=== PATIENT | female | born 1960 | race Caucasian/White ===

== ENCOUNTER 2024-05-09 06:35 | Day surgery (SDC) | payer OTHER, SELFPAY ==
[2024-05-09 11:51] VITALS: BMI 44.6
[2024-05-09 11:52] VITALS: BMI 44.6
[2024-05-09 12:09] VITALS: BP 168/88
[2024-05-09 12:48] VITALS: BP 105/68
[2024-05-09 13:00] VITALS: BP 121/75
[2024-05-09 13:15] VITALS: BP 132/79
[2024-05-09 13:30] VITALS: BP 138/85
== END 2024-05-09 14:01 | disposition home or self-care (01) ==
LOC: SDS 06:35
PROVIDERS: ATTENDING PHYSICIAN Internal Medicine Gastroenterology
DX: Z12.11 Encounter for screening for malignant neoplasm of colon (principal); D12.2 Benign neoplasm of ascending colon; K57.30 Diverticulosis of large intestine without perforation or abscess without bleeding; K64.8 Other hemorrhoids; K44.9 Diaphragmatic hernia without obstruction or gangrene; K31.89 Other diseases of stomach and duodenum; R12 Heartburn; K29.70 Gastritis, unspecified, without bleeding
CPT/HCPCS: 45385; 43239; 88305; 88342

== ENCOUNTER → 2025-07-30 08:19 | Outpatient (REF) | payer OTHER, SELFPAY | LOC: WDC 08:19 | PROVIDERS: ATTENDING PHYSICIAN Nurse Practitioner | DX: Z12.31 Encounter for screening mammogram for malignant neoplasm of breast (principal) | CPT/HCPCS: 77063; 77067 ==